=== PATIENT | male | born 1995 | race Caucasian/White ===

== ENCOUNTER 2021-03-07 16:11 | Emergency (ER) | payer OTHER, SELFPAY ==
--- NOTE | ~2021-03-07 | US_ITS ---
EXAMINATION: US SCROTUM CLINICAL INFORMATION: Testicular. COMPARISON: None TECHNIQUE: A sonogram of the scrotum was performed assessing little-scale appearance and color Doppler flow. Spectral Doppler analysis of the arterial and venous flow were performed in the testes bilaterally. FINDINGS: RIGHT: Right testicle measures 4.0 x 2.0 x 3.1 cm, volume 13 mL. No focal testicular parenchymal lesions are visualized. Spectral Doppler analysis of the arterial and venous flow is normal in the right testis. Right epididymal head is normal in size. Small hydrocele. Varicocele is present as well. Right epididymal Doppler flow is increased. There is a 4 mm cyst or spermatocele within the right epididymal head. There is skin thickening and edema involving the scrotum lateral to the right testicle. LEFT: Left testicle measures 4.3 x 1.9 x 2.9 cm, volume 12.3 mL. No focal testicular parenchymal lesions are visualized. Spectral Doppler analysis of the arterial and venous flow is normal in the left testis. Left epididymal head is normal in size. No hydrocele. Varicocele is present. Left epididymal Doppler flow is normal. US/US scrotum IMPRESSION: * Findings suggestive of right epididymitis. * No evidence of orchitis or testicular torsion. * Small reactive hydrocele on the right. * Bilateral varicoceles * There is focal edematous skin thickening of the right scrotum, lateral to the right testicle
[2021-03-07 16:35] VITALS: BP 129/84; PULSE 88; RESP 17; TEMP 36.7; O2SAT 99; BMI 22.7
--- NOTE | 2021-03-07 16:51 | ED.GENADULT ---
HPI - General Adult General Chief complaint: General Medical Stated complaint: Groin swelling Time Seen by Provider: 03/07/21 18:20 Source: patient Mode of arrival: ambulatory Limitations: no limitations History of Present Illness HPI narrative: 25-year-old male presents with right groin pain and swelling since . States the pain is gradually increased, and is now in his testicles. Did report intermittent fevers and chills over the past 2 days. He is sexually active but does not report to have any new partners. He does not report any penile discharge or lesions. Onset (ago): day(s) Location: genitals Severity: moderate Quality: aching and constant Pain Consistency: constant Relieving factors: none Exacerbating factors: movement Associated symptoms: denies other symptoms Treatments prior to arrival: NSAID Related Data Previous Rx's Medication Instructions Recorded doxycycline monohydrate 100 mg 100 mg PO BID 10 Days #20 cap 03/07/21 capsule ibuprofen 600 mg tablet 600 mg PO Q6H PRN #30 tab 03/07/21 oxycodone 5 mg tablet 5 mg PO Q8H PRN #4 tab 03/07/21 Allergies Allergy/AdvReac Type Severity Reaction Status Date / Time No Known Allergies Allergy Verified 03/07/21 16:35 [No Known Allergies*] Review of Systems Review of Systems: Constitutional: No Fever, No Chills ENT/Mouth: No Ear Pain, No Hoarseness, No sore throat Eyes: No Eye Pain, No Swelling, No Redness, No Foreign Body Cardiovascular: No Chest Pain, No SOB Respiratory: No Cough, No Dyspnea Gastrointestinal: No Nausea, No Vomiting, No Diarrhea, No abdominal Pain Genitourinary: Positive testicular and groin pain, No Dysuria, No Hematuria Musculoskeletal: No joint pain, No Myalgias, No Joint Swelling Skin: No Skin lacerations, No rash Neuro: No Weakness, No Numbness, No Paresthesias, No Loss of Consciousness, No Dizziness, No Headache Psych: No Anxiety/Panic, No Depression Heme/Lymph: no easy bruising, no Lymphadenopathy Endocrine: No Polyuria, No Polydipsia Yes all other systems are reviewed and are negative [facility] Past Medical History Attestation statement: The following information was validated with the patient. Source: old records reviewed Medical History (Updated 03/07/21 @ 20:32 by Fay Aden NP) No active medical problems Social History Social History Smoked in Last 30 Days: No Use of substances other than those prescribed or required for medical reasons: Yes Substance Use Type: Marijuana Advance Directives: No Advance Directives Information Provided: No Physical Exam Vital Signs: Vital Signs: Last Vital Signs Temp 99.3 F 03/07/21 17:04 Pulse 72 03/07/21 20:49 Resp 16 03/07/21 20:49 BP 119/77 03/07/21 20:49 Pulse Ox 98 03/07/21 17:04 Body Mass Index 22.7 Appearance: Alert. Oriented X3. Moderate distress. Eyes: Pupils equal, round and reactive to light. ENT: Pharynx normal. Neck: Normal inspection. Neck supple. CVS: Normal heart rate and rhythm. Pulses normal. Respiratory: No respiratory distress. Breath sounds normal. Abdomen: Soft and nontender. Genitourinary: Bilateral testicular pain, right greater than the left, abscess noted to the right testicle with induration and 1 cm area of fluctuation to the right groin and scrotum. No penile discharge, or lesions noted. No inguinal lymphadenopathy noted. Skin: Skin warm and dry. Normal skin color. Normal skin turgor. Extremities: No lower extremity edema. Neuro: No motor deficit. No sensory deficit. Cranial nerves 2-12 intact. Course Course Course Narrative: 25-year-old male presents with right groin pain and swelling with testicular pain. Patient does have a palpable induration measuring approximately 5 cm in diameter with area of fluctuance on the right testicle. Will order labs, scrotal ultrasound and prepare for incision and drainage. White count elevated at 12.9 will give IV ceftriaxone at this time for abscess. Scrotal ultrasound indicates varicocele and epididymitis. Will treat for chlamydia gonorrhea with IM ceftriaxone and azithromycin with doxycycline. While I did give IV ceftriaxone, with epididymitis and scrotal abscess there was high suspicion for STI. I did discuss this in detail with the patient and he agrees with plan to be treated. Procedures Abscess I/D Site: scrotum Side (if applicable): right Local Anesthetic: lidocaine 2% Amount of anesthesia used (mL): 5 Technique: incised with blade Amount of fluid expressed (mL): 30 Sent for culture/gram staining?: Yes Irrigation: No Packing used?: iodoform Medical Decision Making Differential Diagnosis Differential Diagnosis: Scrotal abscess, epididymitis, STI, testicular torsion, testicular cancer Medical Records Medical records reviewed: Yes I reviewed the patient's medical records. Lab Data Lab results reviewed: Yes I reviewed the patient's lab results. Result diagrams: 03/07/21 17:37 03/07/21 17:37 Labs: Lab Results 03/07/21 03/07/21 03/07/21 Range/Units 17:37 17:37 18:56 WBC 12.6 H (4.8-10.8) X10*3/uL RBC 4.74 (4.60-5.80) X10*6/uL Hgb 14.8 (14.0-18.0) g/dl Hct 43.7 (42-52) % MCV 92.2 (80-98) fL MCH 31.2 (27.0-33.0) pg MCHC 33.9 (31.0-36.0) g/dl RDW 11.9 (11.0-16.0) % Plt Count 227 (160-400) X10*3/uL MPV 8.7 L (9.4-12.4) fL Immature Gran % (Auto) 0.2 (0.0-0.4) % Neut % (Auto) 73.3 H (45-73) % Lymph % (Auto) 14.5 L (20-40) % [facility] % (Auto) 10.1 (2-11) % Eos % (Auto) 1.7 (0-4) % Baso % (Auto) 0.2 (0-2) % Lymph # (Auto) 1.8 (1.2-4.9) X10*3/uL [facility] # (Auto) 1.3 H (0.1-1.2) X10*3/uL Eos # (Auto) 0.2 (0.0-0.4) X10*3/uL Baso # (Auto) 0.0 (0.0-0.2) X10*3/uL Abs Immat Gran (auto) 0.03 (0.00-0.03) X10*3/uL Absolute Neuts (auto) 9.3 H (2.0-8.3) X10*3/uL Absolute Nucleated RBC 0.000 (0.0-0.012) X10*3/uL Nucleated RBC % (auto) 0.0 (0.0-0.2) /100WBC Sodium 140 (135-145) mmol/L Potassium 3.9 (3.3-5.1) mmol/L Chloride 102 (96-108) mmol/L Carbon Dioxide 29 (22-29) mmol/L Anion Gap 13 (12-20) BUN 17 H (9-16) mg/dL Creatinine 0.90 (0.5-1.4) mg/dL Estim Creat Clear Calc 116.7 Estimated GFR > 60 Random Glucose 84 (60-115) mg/dL Calcium 9.6 (8.4-10.2) mg/dL Urine Color YELLOW Urine Appearance CLEAR Urine pH 6.5 (5.0-8.0) Ur Specific [place] 1.020 (1.005-1.025) Urine Protein TRACE (NEG-TRACE) MG/DL Urine Glucose (UA) NEG (NEG) MG/DL Urine Ketones 15 (NEG) MG/DL Urine Blood NEG (NEG) Urine Nitrite NEG (NEG) Ur Leukocyte Esterase NEG (NEG) Imaging Data Scrotal ultrasound: Attestation: I personally reviewed and interpreted this imaging study as follows: Radiologist's impression: EXAMINATION: US SCROTUM CLINICAL INFORMATION: Testicular. COMPARISON: None TECHNIQUE: A sonogram of the scrotum was performed assessing little-scale appearance and color Doppler flow. Spectral Doppler analysis of the arterial and venous flow were performed in the testes bilaterally. FINDINGS: RIGHT: Right testicle measures 4.0 x 2.0 x 3.1 cm, volume 13 mL. No focal testicular parenchymal lesions are visualized. Spectral Doppler analysis of the arterial and venous flow is normal in the right testis. Right epididymal head is normal in size. Small hydrocele. Varicocele is present as well. Right epididymal Doppler flow is increased. There is a 4 mm cyst or spermatocele within the right epididymal head. There is skin thickening and edema involving the scrotum lateral to the right testicle. LEFT: Left testicle measures 4.3 x 1.9 x 2.9 cm, volume 12.3 mL. No focal testicular parenchymal lesions are visualized. Spectral Doppler analysis of the arterial and venous flow is normal in the left testis. Left epididymal head is normal in size. No hydrocele. Varicocele is present. Left epididymal Doppler flow is normal. US/US scrotum IMPRESSION: *? Findings suggestive of right epididymitis. *? No evidence of orchitis or testicular torsion. *? Small reactive hydrocele on the right. *? Bilateral varicoceles *? There is focal edematous skin thickening of the right scrotum, lateral to the right testicle Discharge Plan Discharge Clinical Impression: Varicocele, Acute epididymitis, Testicular abscess Patient Disposition: Home, Self-Care Instructions: Epididymitis (ED), Epididymo-Orchitis (ED), Varicocele (ED), Abscess (ED), Abscess Follow-up (ED), Scrotal Pain (ED), Incision and Drainage (ED) Additional Instructions: You were evaluated for testicular pain. Ultrasound findings indicate epididymitis. We treated you with ceftriaxone injection, and azithromycin for epididymitis. Please take doxycycline 100 mg twice a day for the next 10 days. You have bilateral virus Seals. We drained an abscess to the right scrotum. Your culture is pending. Doxycycline will cover this infection You must follow-up with Urology. Please call Dr. Hernandez and request an appointment. We provided you with your ultrasound results, you may read the results to Dr. Hernandez, he does also have the ability to examine your record. Please return in 3 days to have the abscess packing removed. If you develop fevers, chills, palpitations, or any signs or symptoms indicating worsening infection please return to the emergency department immediately. Do not soak in water, swim, while packing is in place. You may shower. Thank you for choosing this emergency department for evaluation. Please follow-up with primary care physician as needed. Return to the emergency department for any new, concerning, or worsening symptoms. Prescriptions: New doxycycline monohydrate 100 mg capsule 100 mg PO BID 10 Days Qty: 20 RF: 0 oxycodone 5 mg tablet 5 mg PO Q8H PRN (Reason: pain) Qty: 4 RF: 0 ibuprofen 600 mg tablet 600 mg PO Q6H PRN (Reason: pain) Qty: 30 RF: 0 Referrals: Bernabe Hernandez MD [Physician] - 2 days (Varicocele, epididymitis, testicular abscess) Stand Alone Forms: Work/School Release Interventions: ED Discharge Assessment Last Done: 03/07/21 20:52 Discharge Date/Time: 03/07/21 20:55
[2021-03-07 17:04] VITALS: BP 116/71; PULSE 82; RESP 16; TEMP 37.4; O2SAT 98
[2021-03-07 17:41] LABS: MANUAL DIFF FLAG NO
[2021-03-07 17:42] LABS: Basophils Percent Auto 0.2 % (0-2); Eosinophils Absolute Auto 0.2 X10*3/uL (0.0-0.4); Eosinophils Percent Auto 1.7 % (0-4); Hematocrit 43.7 % (42-52); Hemoglobin 14.8 g/dl (14.0-18.0); Imm Gran Abs Auto 0.03 X10*3/uL (0.00-0.03); Imm Gran Pct Auto 0.2 % (0.0-0.4); Lymphocytes Absolute Auto 1.8 X10*3/uL (1.2-4.9); Lymphocytes Percent Auto 14.5 % (20-40); Mean Corpuscular HGB Conc 33.9 g/dl (31.0-36.0); Mean Corpuscular Hemoglobin 31.2 pg (27.0-33.0); Mean Corpuscular Volume 92.2 fL (80-98); Mean Platelet Volume 8.7 fL (9.4-12.4); Monocytes Absolute Auto 1.3 X10*3/uL (0.1-1.2); Monocytes Percent Auto 10.1 % (2-11); Neutrophils Absolute Auto 9.3 X10*3/uL (2.0-8.3); Neutrophils Percent Auto 73.3 % (45-73); Platelet Count 227 X10*3/uL (160-400); Red Blood Count 4.74 X10*6/uL (4.60-5.80); Red Cell Distribution Width 11.9 % (11.0-16.0); White Blood Count 12.6 X10*3/uL (4.8-10.8)
[2021-03-07 18:08] LABS: Anion Gap 13 (12-20); Blood Urea Nitrogen 17 mg/dL (9-16); Calcium 9.6 mg/dL (8.4-10.2); Carbon Dioxide 29 mmol/L (22-29); Chloride 102 mmol/L (96-108); Creatinine Clr Calc Pharmacy 116.7; Estimated Glomerular Filt Rate > 60; Glucose Random 84 mg/dL (60-115); Potassium 3.9 mmol/L (3.3-5.1); Sodium 140 mmol/L (135-145)
[2021-03-07] MEDS: Morphine Sulfate 4 MG/ML CARTRIDGE IVPUSH (18:49)
[2021-03-07] MEDS: cefTRIAXone sodium 1 GM in 0.9 % Sodium Chloride 50 ML IV (18:49)
[2021-03-07 18:50] VITALS: BP 114/69; PULSE 74
[2021-03-07 19:05] LABS: Glucose Urine UA NEG (NEG); Leukocyte Esterase Urine NEG (NEG); Nitrite Urine NEG (NEG); PH 6.5 (5.0-8.0); Urine Blood NEG (NEG); Urine Ketones 15 MG/DL (NEG); Urine Protein TRACE MG/DL (NEG-TRACE)
[2021-03-07 19:11] LABS: Appearance Urine CLEAR; Color Urine YELLOW
--- NOTE | 2021-03-07 19:18 | PC.NURSE ---
SPEECH LANGUAGE ASSISTANT at bedside for I&D with fire technology instructor as day spa manager.
[2021-03-07] MEDS: Lidocaine HCl 2 % MPF 5 ML VIAL SUBCUT (19:57)
[2021-03-07] MEDS: Azithromycin 500 MG TABLET 1000 MG PO (20:34)
[2021-03-07] MEDS: oxyCODONE HCl Immed Release 5 MG TABLET PO (20:34)
[2021-03-07] MEDS: cefTRIAXone sodium 500 MG, Lidocaine HCl 1 % MPF 1 ML IM (20:34)
[2021-03-07 20:49] VITALS: BP 119/77; PULSE 72; RESP 16
--- NOTE | 2021-03-07 20:50 | PC.NURSE ---
Pt medicated per SEP. Wound culture sent. Pt provided with DC instructions.
--- NOTE | 2021-03-07 20:53 | PC.NURSE ---
Pt medicated with PO Oxycodone immediately prior to discharge, despite having to drive home. SOCIAL WORK MANAGER aware pt is driving, pt lives a short distance away.
[2021-03-08 03:02] LABS: CT PCR NOT DETECTED (Not Detect.); NG PCR NOT DETECTED (Not Detect.)
== END 2021-03-07 20:55 | disposition home or self-care (01) ==
PROVIDERS: Nurse Practitioner Family; Emergency Provider Internal Medicine; PCP Internal Medicine
DX: N45.4 Abscess of epididymis or testis (principal); N50.89 Other specified disorders of the male genital organs; N45.1 Epididymitis; I86.1 Scrotal varices; F12.90 Cannabis use, unspecified, uncomplicated; Z79.899 Other long term (current) drug therapy
CPT/HCPCS: 36415; 54700; 76870; 80048; 81003; 85025; 87071; 87205; 87491; 87591; 96361; 96365; 96372; 96375; 99284; J0696; J2270

== ENCOUNTER 2021-03-10 10:15 | Emergency (ER) | payer OTHER, SELFPAY ==
--- NOTE | 2021-03-10 11:02 | ED.GENADULT ---
HPI - General Adult General Stated complaint: packing removal Time Seen by Provider: 03/10/21 11:02 Source: patient Limitations: no limitations History of Present Illness HPI narrative: Patient returns to the ER for packing removal right groin abscess I& D. Patient states symptoms overall have improved since taking antibiotics as directed. No other complaints this time. Patient denies any increased discharge from the abscess. Patient does not believe the packing has fallen out. Related Data Previous Rx's Medication Instructions Recorded doxycycline monohydrate 100 mg 100 mg PO BID 10 Days #20 cap 03/07/21 capsule ibuprofen 600 mg tablet 600 mg PO Q6H PRN #30 tab 03/07/21 oxycodone 5 mg tablet 5 mg PO Q8H PRN #4 tab 03/07/21 Allergies Allergy/AdvReac Type Severity Reaction Status Date / Time No Known Allergies Allergy Verified 03/07/21 16:35 [No Known Allergies*] Review of Systems Constitutional: Constitutional: Denies chills, Denies fever(s) and Denies headache(s) ENT: Denies headache(s) and Denies nasal congestion Cardiovascular: Cardiovascular: Denies chest pain and Denies dyspnea Respiratory: Respiratory: Denies dyspnea Gastrointestinal: Gastrointestinal: Denies nausea and Denies vomiting Genitourinary: Genitourinary: Reports as per HPI Neurologic: Denies headache(s) Hematologic/Lymphatic: Hematologic/Lymphatic: Denies easy bleeding PMFSH Past Medical History Attestation statement: The following information was validated with the patient. Medical History No active medical problems Social History Social History Substance Use Type: Marijuana Advance Directives: No Advance Directives Information Provided: No Physical Exam Vital Signs: Vital Signs: vital signs have been reviewed as normal and appeared to be correct. Blood pressure normal. Heart rate normal. Respiration rate normal. Temperature normal. Oxygen saturation normal. Appearance: Alert. Oriented X3. No acute distress. Head: Normal external exam. Normocephalic. Atraumatic. Eyes: PERRLA. EOMI. ENT: Pharynx normal. Uvula midline. Moist mucous membranes. Neck: Soft full range of motion, no JVD CVS: Heart regular rate and rhythm no murmurs and rubs Respiratory: Breath sounds are clear to auscultation bilaterally. No accessory muscle use noted. Abdomen: Soft nontender no rebound or guarding positive bowel sounds Back:Full range of motion noted. Skin: Right groin scrotal region packing place removed tolerated well no increased discharge Extremities: No lower extremity edema. Full range of motion of all extremities Neuro: Oriented X 3. No motor deficit. No sensory deficit. Reflexes normal. Course Course Course Narrative: Abscess Wound check Packing removal Right groin packing removal tolerated well wound dressed patient instructed to continue current antibiotics and warm soaks. Discharge Plan Discharge Clinical Impression: Abscess, Abscess packing removal Patient Disposition: Home, Self-Care Instructions: Abscess (ED) Additional Instructions: Continue current antibiotics warm soaks daily return if symptoms worsen Prescriptions: No Action doxycycline monohydrate 100 mg capsule 100 mg PO BID 10 Days Qty: 20 RF: 0 oxycodone 5 mg tablet 5 mg PO Q8H PRN (Reason: pain) Qty: 4 RF: 0 ibuprofen 600 mg tablet 600 mg PO Q6H PRN (Reason: pain) Qty: 30 RF: 0
[2021-03-10 11:09] VITALS: BP 104/53; PULSE 54; RESP 16; TEMP 36.8; O2SAT 99; BMI 22.6
== END 2021-03-10 11:15 | disposition home or self-care (01) ==
PROVIDERS: Emergency Provider Emergency Medicine; PCP Internal Medicine
DX: Z48.01 Encounter for change or removal of surgical wound dressing (principal); L02.214 Cutaneous abscess of groin
CPT/HCPCS: 99283

== ENCOUNTER → 2021-04-30 14:46 | Outpatient (BNVA) | payer OTHER, SELFPAY | PROVIDERS: PCP Internal Medicine; Visit Provider Urology | DX: N45.1 Epididymitis (principal) | CPT/HCPCS: 99202 ==

== ENCOUNTER 2021-08-05 00:57 | Emergency (ER) | payer OTHER, SELFPAY ==
[2021-08-05 01:03] VITALS: BP 142/82; PULSE 119; RESP 16; TEMP 36.8; O2SAT 100; BMI 21.9
[2021-08-05 01:26] VITALS: BP 161/99; PULSE 77; RESP 18; TEMP 36.6; O2SAT 98; BMI 31.1
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
== END 2021-08-05 02:43 | disposition home or self-care (01) ==
PROVIDERS: Emergency Provider Emergency Medicine
DX: S01.112A Laceration without foreign body of left eyelid and periocular area, initial encounter (principal); V18.0XXA Pedal cycle driver injured in noncollision transport accident in nontraffic accident, initial encounter; Y93.55 Activity, bike riding; Y92.410 Unspecified street and highway as the place of occurrence of the external cause; Y99.9 Unspecified external cause status
CPT/HCPCS: 12052; 99284